=== PATIENT | female | born 1935 | race Caucasian/White ===

== ENCOUNTER 2023-09-26 09:23 | Outpatient (CLI) | payer BC | END 2023-09-26 09:24 | disposition home or self-care (01) | LOC: CSHWCC 09:23 | PROVIDERS: ATTEND Nurse Practitioner Family | DX: I87.311 Chronic venous hypertension (idiopathic) with ulcer of right lower extremity (principal); L97.511 Non-pressure chronic ulcer of other part of right foot limited to breakdown of skin; I73.9 Peripheral vascular disease, unspecified; Z86.718 Personal history of other venous thrombosis and embolism | CPT/HCPCS: 99214; G0463 ==

== ENCOUNTER 2023-10-03 15:08 | Outpatient (CLI) | payer MEDICARE, BC | END 2023-10-03 15:09 | disposition home or self-care (01) | LOC: CSHWCC 15:08 | PROVIDERS: ATTEND Nurse Practitioner Family | DX: I87.311 Chronic venous hypertension (idiopathic) with ulcer of right lower extremity (principal); L97.511 Non-pressure chronic ulcer of other part of right foot limited to breakdown of skin; I73.9 Peripheral vascular disease, unspecified; Z86.718 Personal history of other venous thrombosis and embolism | CPT/HCPCS: 99213; G0463 ==

== ENCOUNTER 2023-10-09 14:23 | Outpatient (CLI) | payer MEDICARE, BC | END 2023-10-09 14:24 | disposition home or self-care (01) | LOC: CSHWCC 14:23 | PROVIDERS: ATTEND Nurse Practitioner Family | DX: I87.311 Chronic venous hypertension (idiopathic) with ulcer of right lower extremity (principal); L97.511 Non-pressure chronic ulcer of other part of right foot limited to breakdown of skin; I73.9 Peripheral vascular disease, unspecified; Z86.718 Personal history of other venous thrombosis and embolism | CPT/HCPCS: 99213; G0463 ==

== ENCOUNTER 2023-10-09 14:55 | Emergency (ER) | payer BC, MEDICARE ==
[2023-10-09 16:11] LABS: #Basophils 0.04 10x3/uL (0.0-0.2); #Eosinphils 0.09 10x3/uL (0.0-0.5); #Monocytes 0.66 10x3/uL (0.0-1.1); #Neutrophils 4.42 10x3/uL (1.5-8.4); %Basophils 0.6 % (0.0-2.0); %Eosinophils 1.5 % (0.0-6.0); %Lymphocytes 15.2 % (18.0-47.0); %Monocytes 10.7 % (0.0-10.0); %Neutrophils 71.7 % (40.0-75.0); Hematocrit 30.8 % (34.9-44.5); Hemoglobin 9.3 g/dL (12.0-15.5); Mean Corpuscular HGB CONC 30.2 g/dL (32.0-36.0); Mean Corpuscular Hemoglobin 23.6 pg (27.0-33.0); Mean Corpuscular Volume 78.2 fL (81.6-98.3); Platelet Count 254 10x3/uL (150-450); Red Blood Cell (RBC) Count 3.94 10x6/uL (3.90-5.03); White Blood Cell (WBC) Count 6.2 10x3/uL (3.5-10.5)
[2023-10-09 16:31] LABS: ALT (SGPT) 8 U/L (8-55); AST (SGOT) 20 U/L (5-34); Albumin 3.5 g/dL (3.4-4.8); Alkaline Phosphatase 160 U/L (40-110); Anion Gap 14 mmol/L (10-20); BUN (Urea Nitrogen) 19 mg/dL (9.8-20.1); Bilirubin, Total 0.4 mg/dL (0.2-1.2); Calc. Creatinine Clearance 0 mL/min (70-130); Calcium 9.5 mg/dL (7.8-10.44); Carbon Dioxide 23 mmol/L (23-31); Chloride 104 mmol/L (98-107); Estimated GFR 51; Globulin 3.4 g/dL (2.4-3.5); Glucose 96 mg/dL (83-110); Potassium 4.5 mmol/L (3.5-5.1); Protein, Total 6.9 g/dL (5.8-8.1); Sodium 136 mmol/L (136-145); Troponin I 0.031 ng/mL (< 0.028)
[2023-10-09 17:56] LABS: Bilirubin Neg (Negative); Blood, Urine Negative (Negative); Clarity Clear (Clear); Glucose, Urine (Dipstick) Normal (Negative); Ketone, Urine Negative (Negative); Leukocyte Negative (Negative); Nitrite Negative (Negative); Protein, Urine (Dipstick) Negative (Neg-Trace); Specific Gravity, Urine 1.015 (1.005-1.030); Urobilinogen Normal mg/dL (Less than 2)
[2023-10-09 18:08] LABS: Bacteria/HPF Rare-Few HPF (None Seen); CAUTI Indications for Culture Dysuria,urgency,freq; RBC/HPF None Seen HPF (0-3); Squamous Epithelial 0-3 HPF (0-3); WBC/HPF 0-3 HPF (0-3)
[2023-10-09 18:09] LABS: Urine Culture Reflex No No
== END 2023-10-09 17:56 | disposition home or self-care (01) ==
LOC: CSHERS 14:55
DX: S91.101A Unspecified open wound of right great toe without damage to nail, initial encounter (principal); I87.8 Other specified disorders of veins; R60.0 Localized edema; I48.91 Unspecified atrial fibrillation; Z79.01 Long term (current) use of anticoagulants; Z79.899 Other long term (current) drug therapy; Z86.718 Personal history of other venous thrombosis and embolism
CPT/HCPCS: 36415; 71045; 80053; 81001; 83880; 84484; 85025; 93970

== ENCOUNTER 2023-10-16 15:09 | Outpatient (CLI) | payer MEDICARE | END 2023-10-16 15:10 | disposition home or self-care (01) | LOC: CSHWCC 15:09 | PROVIDERS: ATTEND Nurse Practitioner Family | DX: S80.11XD Contusion of right lower leg, subsequent encounter (principal); I87.311 Chronic venous hypertension (idiopathic) with ulcer of right lower extremity; L97.511 Non-pressure chronic ulcer of other part of right foot limited to breakdown of skin; I73.9 Peripheral vascular disease, unspecified; Z86.718 Personal history of other venous thrombosis and embolism | CPT/HCPCS: 99215; G0463 ==